=== PATIENT | female | born 1990 | race Caucasian/White ===

== ENCOUNTER 2018-10-04 19:56 | Emergency (ER) | payer OTHER ==
[~2018-10-04] VITALS: Ht 152.4 cm; Wt 86.2 kg
[~2018-10-04 19:56] MED LIST: DOLOGESIC 500-1 EACH PO; ORASEP SPRAY30 ML MM; ZYNCOF 20-400120 ML PO
== END 2018-10-04 22:00 | disposition home or self-care (01) ==
LOC: ER 19:56
DX: M54.31 Sciatica, right side (principal); M25.551 Pain in right hip